=== PATIENT | female | born 2000 | race Caucasian/White ===

== ENCOUNTER 2022-01-18 18:32 | Emergency (ER) | payer SELFPAY ==
[~2022-01-18] VITALS: Ht 154.9 cm; Wt 49.9 kg
[2022-01-18 19:05] VITALS: BP 134/71
--- NOTE | 2022-01-18 21:04 | NUR ---
Dr. Flanagan examining patient.
--- NOTE | 2022-01-18 21:09 | NUR ---
Patient ambulated to bed 11.
[2022-01-18] MEDS ORDERED: NACL 0.9% 1,000 ML IV ONE (21:10)
[2022-01-18] MEDS ORDERED: KETOROLAC 30 MG/ML VIAL IVP ONE (21:10)
[2022-01-18] MEDS ORDERED: KETOROLAC 60 MG/2 ML VIAL IM ONE (21:10)
[2022-01-18] MEDS ORDERED: ONDANSETRON 4 MG ODT PO ONE (21:10)
[2022-01-18] MEDS ORDERED: ONDANSETRON 4 MG/2 ML VIAL IVP ONE ×2 (21:10→22:45)
--- NOTE | 2022-01-18 21:39 | NUR ---
21 YO/F C/O RLQ ABDOMINAL PAIN SHARP RADIATING TO BACK X12 HOURS, +FEVERS/CHILLS OF 103, +N/V (NO BLOOD), + BURNING URINATION. PT DENIES ANY DIARRHEA/ CONSTIPATION, CHEST PAIN OR SOB. ABDOMEN SOFT, TENDER AT RLQ. PMH: DENIES ALLERGIES: DENIES
--- NOTE | 2022-01-18 21:53 | NUR ---
US AT BEDSIDE.
[2022-01-18 21:55] LABS: BASOPHILS % (AUTO) 0.3 % (0.0-2.0); EOSINOPHILS # (AUTO) 0.1 K/uL (0-0.4); EOSINOPHILS % (AUTO) 1.4 % (0.0-4.0); HEMATOCRIT 36.1 % (36-48); LYMPHOCYTES # (AUTO) 2.1 K/uL (2.5-16.5); LYMPHOCYTES % (AUTO) 24.1 % (20.5-51.1); MEAN CORPUSCULAR HEMOGLOBIN 28 pg (27-31); MEAN CORPUSCULAR HGB CONC 33 g/dL (33-37); MEAN CORPUSCULAR VOLUME 85.1 fL (80-94); MONOCYTES # (AUTO) 0.9 K/uL (0.8-1.0); MONOCYTES % (AUTO) 10.6 % (1.7-9.3); NEUTROPHILS # (AUTO) 5.5 K/uL (1.8-7.7); NEUTROPHILS % (AUTO) 63.6 % (42.2-75.2); PLATELET COUNT (AUTO) 222 K/uL (140-450); RED BLOOD CELL COUNT(AUTO) 4.24 MIL/uL (4.20-5.40); WHITE BLOOD COUNT (AUTO) 8.6 K/uL (4.8-10.8)
[2022-01-18 22:09] LABS: ANION GAP 10.5 (8-16); CARBON DIOXIDE 30.6 mmol/L (21-32); CREATININE 1.4 mg/dL (0.6-1.3); POTASSIUM 4.1 mmol/L (3.5-5.1); TOTAL BILIRUBIN 0.1 mg/dL (0.0-1.0)
[2022-01-18 22:15] LABS: APPEARANCE,URINE CLEAR (CLEAR); BILIRUBIN,URINE NEGATIVE (NEGATIVE); BLOOD, URINE NEGATIVE (NEGATIVE); COLOR,URINE YELLOW (YELLOW); LEUKOCYTE ESTERASE ,URINE 1+ (NEGATIVE); NITRITE, URINE NEGATIVE (NEGATIVE); UGLUCOSE NEGATIVE (NEGATIVE)
[2022-01-18 22:27] LABS: RBC,URINE 0-5 /HPF (0-5)
[2022-01-18] MEDS ORDERED: MORPHINE SULFATE 4 MG/ML SYR IVP ONE (22:45)
[2022-01-18] MEDS ORDERED: TRAM50TA1 PO (22:48)
[2022-01-18] MEDS ORDERED: CEPH500C16 PO (22:48)
[2022-01-18] MEDS ORDERED: ONDA-188 PO (22:48)
[2022-01-18] MEDS ORDERED: cefTRIAXone 1,000 MG VIAL ONE (22:50)
--- NOTE | 2022-01-18 23:04 | NUR ---
pt c/o of ongoing abdominal pain, ermd made aware, new orders carried out, will continue to monitor.
[2022-01-18] MEDS ORDERED: diphenhydrAMINE 50 MG/ML VIAL ONE (23:07)
--- NOTE | 2022-01-18 23:12 | NUR ---
pt began to get itchy to body and throat + coughing and tachycardicupon rocephin admin, ermd aware. per ermd to continue rocephine admin once benadryl was given. orders carried out.
--- NOTE | 2022-01-18 23:17 | NUR ---
pt reports feeling better, no ongoing itching. vs w/in normal limits. will continue to monitor.
--- NOTE | 2022-01-18 23:52 | NUR ---
PT REPORTS FEELING "SO MUCH BETTER" PAIN 3/10, NO OTHER SYMPTOMS.
[2022-01-18] MEDS ORDERED: diphenhydrAMINE 50 MG/ML VIAL IVP ONE (23:55)
[2022-01-19 00:48] VITALS: BP 102/65
--- NOTE | 2022-01-19 00:48 | NUR ---
Patient discharged with v/s stable. Written and verbal after care instructions given and explained. Patient alert, oriented and verbalized understanding of instructions. Ambulatory with steady gait. All questions addressed prior to discharge. ID band removed. Patient advised to follow up with PMD. Rx of KEFLEX, ZOFRAN, TRAMADOL given. Patient educated on indication of medication including possible reaction and side effects. Opportunity to ask questions provided and answered.
== END 2022-01-19 00:48 | disposition home or self-care (01) ==
LOC: MED 18:32
DX: N83.201 Unspecified ovarian cyst, right side (principal); N39.0 Urinary tract infection, site not specified; R11.2 Nausea with vomiting, unspecified; F12.90 Cannabis use, unspecified, uncomplicated; Z79.899 Other long term (current) drug therapy; Z90.49 Acquired absence of other specified parts of digestive tract; Z98.890 Other specified postprocedural states
CPT/HCPCS: 36415; 76830; 80053; 81001; 81025; 85025; 87086; 93976; 96361; 96365; 96375; 99285; J0696; J1200; J1885; J2270; J2405; J7030; Q0092; 99284

== ENCOUNTER 2022-01-21 20:46 | Emergency (ER) | payer SELFPAY ==
[~2022-01-21] VITALS: Ht 154.9 cm; Wt 49.9 kg
[~2022-01-21 20:46] MED LIST: CEPH500C16 PO; ONDA-188 PO; TRAM50TA1 PO
[2022-01-21 20:57] VITALS: BP 125/85
--- NOTE | 2022-01-21 21:56 | NUR ---
Blood for labwork drawn from right arm per money room supervisor. Patient tolerated well.
[2022-01-21 22:27] LABS: APPEARANCE,URINE HAZY (CLEAR); BILIRUBIN,URINE NEGATIVE (NEGATIVE); BLOOD, URINE NEGATIVE (NEGATIVE); COLOR,URINE YELLOW (YELLOW); LEUKOCYTE ESTERASE ,URINE 2+ (NEGATIVE); NITRITE, URINE NEGATIVE (NEGATIVE); UGLUCOSE NEGATIVE (NEGATIVE)
[2022-01-21 22:29] LABS: BASOPHILS % (AUTO) 0.3 % (0.0-2.0); EOSINOPHILS # (AUTO) 0.1 K/uL (0-0.4); EOSINOPHILS % (AUTO) 0.7 % (0.0-4.0); HEMATOCRIT 36.2 % (36-48); HEMOGLOBIN 11.9 g/dL (12.0-16.0); LYMPHOCYTES # (AUTO) 1.4 K/uL (2.5-16.5); LYMPHOCYTES % (AUTO) 15.1 % (20.5-51.1); MEAN CORPUSCULAR HEMOGLOBIN 28 pg (27-31); MEAN CORPUSCULAR HGB CONC 33 g/dL (33-37); MEAN CORPUSCULAR VOLUME 84.4 fL (80-94); MONOCYTES # (AUTO) 0.8 K/uL (0.8-1.0); MONOCYTES % (AUTO) 8.1 % (1.7-9.3); NEUTROPHILS # (AUTO) 7.2 K/uL (1.8-7.7); NEUTROPHILS % (AUTO) 75.8 % (42.2-75.2); PLATELET COUNT (AUTO) 231 K/uL (140-450); RED BLOOD CELL COUNT(AUTO) 4.29 MIL/uL (4.20-5.40); RED CELL DISTRIBUTION WIDTH 14.6 % (11.6-13.7); WHITE BLOOD COUNT (AUTO) 9.4 K/uL (4.8-10.8)
--- NOTE | 2022-01-21 22:47 | NUR ---
Patient ambulated to bed 9 with her friend/family.
--- NOTE | 2022-01-21 22:58 | NUR ---
02/27 flank pain xwednesday. pt state she was here tues, d/c with uti, given keflex and tramadol, pt states pain is getting worse and tramadol does not work. pt states she had a fever of 101.2 of today and took tylenol. pt is afebrile now. +n/v xtoday. +frequency +burning. denies hx, rx and allergies
[2022-01-21 23:06] LABS: ALBUMIN 4.3 g/dL (3.4-5.0); ANION GAP 15.4 (8-16); CARBON DIOXIDE 25.1 mmol/L (21-32); CREATININE 1.5 mg/dL (0.6-1.3); POTASSIUM 4.5 mmol/L (3.5-5.1); TOTAL BILIRUBIN 0.3 mg/dL (0.0-1.0)
[2022-01-21 23:30] LABS: RBC,URINE 0-5 /HPF (0-5); WBC,URINE 20-60 /HPF (0-5)
[2022-01-21] MEDS ORDERED: cefTRIAXone 1,000 MG in LIDOCAINE MPF 1% 2.1 ML IM ONE (23:45)
[2022-01-21] MEDS ORDERED: KETOROLAC 60 MG/2 ML VIAL IM ONE (23:45)
[2022-01-21] MEDS ORDERED: LORazepam 1 MG TAB PO ONE (23:45)
[2022-01-21] MEDS ORDERED: IBUP-2218 PO (23:48)
[2022-01-21] MEDS ORDERED: NITR100C7 PO (23:48)
[2022-01-21] MEDS ORDERED: NITROFURANTOIN 100 MG CAP PO SCH (23:50)
[2022-01-21] MEDS ORDERED: ONDANSETRON 4 MG ODT ONE (23:57)
--- NOTE | 2022-01-21 23:58 | NUR ---
pt asked for nausea meds, stated its ok to give zofran 4mg odt for nausea. orders carried out.
[2022-01-22] MEDS ORDERED: ONDANSETRON 4 MG ODT PO ONE
[2022-01-22 00:15] VITALS: BP 131/67
--- NOTE | 2022-01-22 00:15 | NUR ---
Patient discharged with v/s stable. Written and verbal after care instructions given and explained. Patient alert, oriented and verbalized understanding of instructions. Ambulatory with steady gait. All questions addressed prior to discharge. ID band removed. Patient advised to follow up with PMD. Rx of macrobid and ibuprofen given. Patient educated on indication of medication including possible reaction and side effects. Opportunity to ask questions provided and answered.
== END 2022-01-22 00:15 | disposition home or self-care (01) ==
LOC: MED 20:46
DX: N39.0 Urinary tract infection, site not specified (principal); R11.2 Nausea with vomiting, unspecified; F12.90 Cannabis use, unspecified, uncomplicated; Z79.899 Other long term (current) drug therapy; Z90.49 Acquired absence of other specified parts of digestive tract
CPT/HCPCS: 36415; 80053; 81001; 81025; 83690; 85025; 87086; 99284; Q0162; J1885